=== PATIENT | female | born 1970 | race Caucasian/White ===

== ENCOUNTER 2018-11-26 19:19 | Emergency (ER) | payer BC ==
[2018-11-26] MEDS ORDERED: Morphine 4 MG/ML VIAL (1 ml) 4 MG/ML VIAL IV ONE (21:57)
[2018-11-26] MEDS ORDERED: Ketorolac INJ* 15 MG/ML 1 ML VIAL IV PUSH ONE (21:57)
[2018-11-26] MEDS ORDERED: Metoclopramide IV* 5 MG/ML 2 ML VIAL IV SLOW PU ONE (21:58)
[2018-11-26] MEDS ORDERED: NS 0.9% 1000 ML** 1,000 ML IV ONE (21:58)
--- NOTE | 2018-11-26 21:59 | ED ---
Back Pain - HPI Summary HPI Summary: Patient is a 48 y/o F presenting to ED with complaints of constant, right sided lower back pain for the past two days. She denies any other Sx, specifically N/V , fever and urinary symptoms. Radiation of pain is denied, she states that movement does not aggravate back pain. PSHx of two caesarean sections. Patient has never smoked tobacco, denies alcohol and substance usage. Patient is on Effexor XR and denies any other medications. On triage, pain is rated 5/10, nothing is noted to aggravate/alleviate Sx, and it is reported that the patient has experienced no relief in Sx with heat and pain medication usage. Home medications and allergies are reviewed. - History of Current Complaint Chief Complaint: EDBackInjuryPain Stated Complaint: PAIN IN RIGHT SIDE/BACK PER PT Time Seen by Provider: 11/26/18 21:45 Hx Obtained From: Patient Hx Last Menstrual Period: 02/25 Onset/Duration: Lasting Days - two days, Still Present Onset/Duration: Started Days Ago - two days, Still Present Timing: Constant, Lasting Days - two days Back Pain Location: Is Discrete @ - right lower back Severity Currently: Moderate Pain Intensity: 5 Pain Scale Used: 0-10 Numeric - 5/10 Aggravating Symptom(s): Nothing Alleviating Symptom(s): Nothing Associated Signs And Symptoms: Positive: Negative - Allergies/Home Medications Allergies/Adverse Reactions: Allergies Allergy/AdvReac Type Severity Reaction Status Date / Time No Known Allergies Allergy Verified 11/26/18 19:26 PMH/Surg Hx/FS Hx/Imm Hx Sensory History: Denies: Hx Legally Blind, Hx Deafness Opthamlomology History: Denies: Hx Legally Blind EENT History: Denies: Hx Deafness - Surgical History Surgery Procedure, Year, and Place: two caesarean sections Infectious Disease History: No Infectious Disease History: Denies: Traveled Outside the [place] in Last 30 Days - Family History Known Family History: Positive: Cardiac Disease - Social History Alcohol Use: None Substance Use Type: Reports: None Smoking Status (MU): Never Smoked Tobacco Review of Systems Negative: Fever Negative: Vomiting, Nausea Genitourinary: Other - NEGATIVE - URINARY SX Musculoskeletal: Other - POSITIVE - RIGHT LOWER BACK PAIN All Other Systems Reviewed And Are Negative: Yes Physical Exam - Summary Physical Exam Summary: VITAL SIGNS: Reviewed. GENERAL: Patient is a well-developed and nourished female who is lying comfortable in the stretcher. Patient is not in any acute respiratory distress. Right CVA tenderness is noted. HEAD AND FACE: No signs of trauma. No ecchymosis, hematomas or skull depressions. No sinus tenderness. EYES: PERRLA, EOMI x 2, No injected conjunctiva, no nystagmus. EARS: Hearing grossly intact. Ear canals and tympanic membranes are within normal limits. MOUTH: Oropharynx within normal limits. NECK: Supple, trachea is midline, no adenopathy, no JVD, no carotid bruit, no c- spine tenderness, neck with full ROM CHEST: Symmetric, no tenderness at palpation LUNGS: Clear to auscultation bilaterally. No wheezing or crackles. CVS: Regular rate and rhythm, S1 and S2 present, no murmurs or gallops appreciated. ABDOMEN: Soft, non-tender. No signs of distention. No rebound no guarding, and no masses palpated. Bowel sounds are normal. EXTREMITIES: FROM in all major joints, no edema, no cyanosis or clubbing. Bilateral straight leg raise test is negative. NEURO: Alert and oriented x 3. No acute neurological deficits. Speech is normal and follows commands. SKIN: Dry and warm Triage Information Reviewed: Yes Vital Signs On Initial Exam: Initial Vitals Temp Pulse Resp BP Pulse Ox 97.9 F 94 16 177/102 100 11/26/18 19:20 11/26/18 19:20 11/26/18 19:20 11/26/18 19:20 11/26/18 19:20 Vital Signs Reviewed: Yes Diagnostics - Vital Signs Vital Signs Temp Pulse Resp BP Pulse Ox 11/26/18 21:23 98.1 F 102 16 150/93 98 11/26/18 19:20 97.9 F 94 16 177/102 100 - Laboratory Result Diagrams: 11/26/18 21:56 11/26/18 21:56 Lab Statement: Any lab studies that have been ordered have been reviewed, and results considered in the medical decision making process. - CT ABD/PEL CT CT Interpretation Completed By: Radiologist Summary of CT Findings: IMPRESSION: 1. No acute findings. No renal or ureteral calculi. No hydronephrosis. 2. Large amount of stool throughout colon. Correlate clinically for. constipation. THIS REPORT WAS REVIEWED BY DR. AHUJA. Re-Evaluation - Re-Evaluation First Eval Re-Evaluation Time: 23:47 Change: Improved Comment: Patient reports improvment of Sx after treatment. Results of labs and tests were discussed, patient will be discharged to home and follow up with PCP. Patient is agreeable with this plan. Back Pain Course/Dx - Course Course Of Treatment: Patient is a 48 y/o F presenting to ED with complaints of constant, right sided lower back pain for the past two days. She denies any other Sx, specifically N/V, fever and urinary symptoms. Radiation of pain is denied, she states that movement does not aggravate back pain. PSHx of two caesarean sections. Patient has never smoked tobacco, denies alcohol and substance usage. Patient is on Effexor XR and denies any other medications. On physical exam, right CVA tenderness is noted, patient has a negative bilateral straight leg raise test. During ED course, patient was given fluids, reglan 10 mg IV SLOW PU ONCE ONE, Toradol 15 mg IV PUSH ONCE ONE. Bloodwork showed BUN/ creatinine ratio 27.4. lipase 18, beta HCG < 0.60. CT ABD/PEL IMPRESSION: 1. No acute findings. No renal or ureteral calculi. No hydronephrosis. 2. Large amount of stool throughout colon. Correlate clinically for. constipation. Patient reports improvment of Sx after treatment. Results of labs and tests were discussed, patient will be discharged to home and follow up with PCP. Patient is agreeable with this plan. - Diagnoses Provider Diagnoses: Back pain Discharge - Sign-Out/Discharge Documenting (check all that apply): Patient Departure - discharge Patient Received Moderate/Deep Sedation with Procedure: No - Discharge Plan Condition: Stable Disposition: HOME Prescriptions: Cyclobenzaprine TAB* [Flexeril 10 MG TAB*] 10 mg PO TID PRN #20 tab PRN Reason: Spasms - Back Ibuprofen TAB* [Motrin TAB* 800 MG] 800 mg PO Q6H PRN #30 tab PRN Reason: Pain Patient Education Materials: Back Pain (ED) Referrals: Сергей Valencia MD [Primary Care Provider] - 3 Days Additional Instructions: PLEASE RETURN TO THE ED IMMEDIATELY FOR WORSENING OR CONCERNING SYMPTOMS. FOLLOW UP WITH YOUR PRIMARY CARE PHYSICIAN WITHIN THE NEXT THREE DAYS. - Attestation Statements Document Initiated by Scribe: Yes Documenting Scribe: IBAN GARIBAY Provider For Whom Scribe is Documenting (Include Credential): ANTHONY AHUJA MD Scribe Attestation: I, IBAN GARIBAY, scribed for ANTHONY AHUJA MD on 11/26/18 at 2351. Status of Scribe Document: Ready
[2018-11-26 22:25] LABS: ABS Basophils 0.1 10^3/ul (0-0.2); ABS Eosinophils 0.1 10^3/ul (0-0.6); ABS Lymphocytes 2.4 10^3/ul (1.0-4.8); ABS Monocytes 0.6 10^3/ul (0-0.8); ABS Neutrophils 4.6 10^3/ul (1.5-7.7); Eosinophil % 0.9 %; Hematocrit 41 % (35-47); Hemoglobin 13.8 g/dL (12.0-16.0); Lymphocyte % 30.8 %; Mean Corpuscular HGB Conc 34 g/dL (31-36); Mean Corpuscular Hemoglobin 31 pg (27-31); Mean Corpuscular Volume 92 fL (80-97); Mean Platelet Volume 10.4 fL (7.4-10.4); Platelet Count 216 10^3/uL (150-450); Red Blood Count 4.39 10^6 /uL (3.70-4.87); Red Cell Distribution Width 13 % (10.5-15); White Blood Count 7.7 10^3/uL (3.5-10.8)
[2018-11-26 22:40] LABS: ALT 15 U/L (7-52); AST 14 U/L (13-39); Albumin 4.7 g/dL (3.2-5.2); Albumin/Globulin Ratio 1.7 (1-3); Alkaline Phosphatase 50 U/L (34-104); Anion Gap 8 mmol/L (2-11); BUN/Creatinine Ratio 27.4 (8-20); Blood Urea Nitrogen 20 mg/dL (6-24); C Reactive Protein 4.03 mg/L (<8.01); CO2 Carbon Dioxide 23 mmol/L (22-32); Calcium 9.6 mg/dL (8.6-10.3); Chloride 106 mmol/L (101-111); EGFR African American 103.9 (>60); EGFR Non-African American 85.8 (>60); Globulin 2.7 g/dL (2-4); Glucose 96 mg/dL (70-100); Magnesium 2.1 mg/dL (1.9-2.7); Sodium 137 mmol/L (135-145); Total Protein 7.4 g/dL (6.4-8.9)
[2018-11-26 22:45] LABS: HCG Pregnancy < 0.60 mIU/mL
[2018-11-26 23:54] VITALS: BP 114/66
== END 2018-11-26 23:53 | disposition home or self-care (01) ==
LOC: ED 19:19
DX: M54.9 Dorsalgia, unspecified (principal)
CPT/HCPCS: 36415; 74176; 80053; 83690; 83735; 84702; 85025; 86140; 96361; 96374; 96375; 99282; J1885; J2270; J2765